=== PATIENT | female | born 1995 ===

== ENCOUNTER 2020-05-27 09:26 | Outpatient (CLI) | payer MEDICAID ==
[~2020-05-27] VITALS: Ht 162.6 cm; Wt 90.4 kg
[2020-05-27] MEDS ORDERED: PREN1TAB10 PO (10:07)
[2020-05-27 10:08] VITALS: BP 111/62
== END 2020-05-27 10:33 | disposition home or self-care (01) ==
LOC: LDOP 09:26
PROVIDERS: ATTEND Obstetrics & Gynecology
DX: Z34.93 Encounter for supervision of normal pregnancy, unspecified, third trimester (principal); Z3A.34 34 weeks gestation of pregnancy
CPT/HCPCS: 59025

== ENCOUNTER 2020-06-19 15:46 | Outpatient (CLI) | payer MEDICAID ==
[~2020-06-19] VITALS: Ht 162.6 cm; Wt 93.1 kg
[~2020-06-19 15:46] MED LIST: PREN1TAB10 PO
[2020-06-19 15:53] VITALS: BP 118/71
== END 2020-06-19 17:50 | disposition home or self-care (01) ==
LOC: LDOP 15:46
PROVIDERS: ATTEND Obstetrics & Gynecology
DX: Z34.93 Encounter for supervision of normal pregnancy, unspecified, third trimester (principal); Z3A.37 37 weeks gestation of pregnancy
CPT/HCPCS: 59025; 76819

== ENCOUNTER 2020-07-04 11:37 | Outpatient (CLI) | payer MEDICAID ==
[~2020-07-04] VITALS: Ht 162.6 cm; Wt 93.1 kg
== END 2020-07-04 13:20 | disposition home or self-care (01) ==
LOC: LDOP 11:37
PROVIDERS: ATTEND Obstetrics & Gynecology
DX: O26.893 Other specified pregnancy related conditions, third trimester (principal); R10.9 Unspecified abdominal pain; Z3A.39 39 weeks gestation of pregnancy
CPT/HCPCS: 59025

== ENCOUNTER 2020-07-05 11:28 | Inpatient (IN) | payer MEDICAID ==
[~2020-07-05] VITALS: Ht 162.6 cm; Wt 93.2 kg
[2020-07-07] MEDS ORDERED: TERBUTALINE 1 MG/ML, 1ML IVPush PRN (05:30)
[2020-07-07] MEDS ORDERED: OXYTOCIN 30U/ 0.9% NaCL 500ML 500 ML IV PRN (05:30)
[2020-07-07] MEDS ORDERED: D5%-LACTATED RINGERS 1,000 ML IV SCH (05:30)
[2020-07-07] MEDS ORDERED: FENTANYL PF 100 MCG/2ML IV PRN (05:30)
[2020-07-07] MEDS ORDERED: TERBUTALINE 1 MG/ML, 1ML SQ PRN (05:30)
[2020-07-07] MEDS ORDERED: METOCLOPRAMIDE 5 MG/ML, 2ML IVPush PRN (05:30)
[2020-07-07] MEDS ORDERED: ONDANSETRON 2MG/ML, 2ML IVPush PRN ×3 (05:30→23:45)
[2020-07-07] MEDS ORDERED: SODIUM CITRATE/CITRIC ACID 30 ML UDC PO PRN (05:30)
[2020-07-07] MEDS ORDERED: OXYTOCIN 30U/ 0.9% NaCL 500ML 500 ML IV ONE (05:30)
[2020-07-07] MEDS ORDERED: LACTATED RINGERS 1,000 ML IV SCH ×2 (05:30→17:30)
[2020-07-07 06:09] LABS: BASOPHILS % (AUTO) 0 % (0-1); EOSINOPHILS % (AUTO) 1 % (1-7); LYMPHOCYTES % (AUTO) 23 % (22-44); MEAN CORPUSCULAR HEMOGLOBIN 29.2 pg (27.0-34.8); MEAN CORPUSCULAR HGB CONC 33.8 g/dL (32.4-35.8); MEAN PLATELET VOLUME 9.6 fL (7.4-10.4); MONOCYTES % (AUTO) 7 % (2-9); NEUTROPHILS % (AUTO) 70 % (42-75); PLATELET COUNT 211 x10^3/uL (130-400); RED CELL DISTRIBUTION WIDTH 14.5 % (9.6-15.2)
[2020-07-07 06:17] LABS: MD NO
[2020-07-07] MEDS ORDERED: PLEASE ENTER HEIGHT AND WEIGHT MC SCH (06:30)
[2020-07-07] MEDS ORDERED: MISOPROSTOL 200 MCG TABLET ONE ×2 (07:14→19:00)
[2020-07-07] MEDS ORDERED: NEWBORN KIT ONE (07:14)
[2020-07-07] MEDS ORDERED: LIDOCAINE 1%, 20ML ONE (07:14)
[2020-07-07] MEDS: FENTANYL PF 100 MCG/2ML IVPush PRN ×3 (13:24→16:10)
[2020-07-07] MEDS ORDERED: FENTANYL/BUPIV./NS/PF 250 ML EPIDCONT ONE (16:38)
[2020-07-07] MEDS ORDERED: BUPIVACAINE 0.25% ONE (16:38)
[2020-07-07] MEDS ORDERED: EPHEDRINE 50 MG/ML, 1ML IVPush PRN ×2 (17:30→23:45)
[2020-07-07] MEDS ORDERED: DIPHENHYDRAMINE 50 MG/ML, 1ML IVPush PRN (17:30)
[2020-07-07] MEDS ORDERED: LACTATED RINGERS 1,000 ML IVBOLUS PRN (17:30)
[2020-07-07] MEDS ORDERED: FENTANYL/BUPIV./NS/PF 250 ML EPIDCONT SCH (17:30)
[2020-07-07] MEDS ORDERED: NALOXONE 0.4 MG/ML, 1ML IVPush PRN (17:30)
[2020-07-07] MEDS ORDERED: LIDOCAINE/MPF 2%-EPI 1:200K, 20 ML ONE (18:40)
[2020-07-07] MEDS ORDERED: THROMBIN (RECOMBINANT) 5,000 UNIT VIAL TP ONE (19:00)
[2020-07-07] MEDS ORDERED: SODIUM CITRATE/CITRIC ACID 15 ML UDC ONE (19:01)
[2020-07-07] MEDS ORDERED: ACETAMINOPHEN 325 MG TABLET PO PRN (19:30)
[2020-07-07] MEDS ORDERED: CARBOPROST TROMETHAMINE 250 MCG/ML, 1ML IM PRN (19:30)
[2020-07-07] MEDS ORDERED: ONDANSETRON 2MG/ML, 2ML IV PRN (19:30)
[2020-07-07] MEDS ORDERED: morphine SULFATE 10 MG/ML, 1ML IVPush PRN (19:30)
[2020-07-07] MEDS ORDERED: MISOPROSTOL 200 MCG TABLET PR PRN (19:30)
[2020-07-07] MEDS ORDERED: MORPHINE SULFATE 4 MG/ML, 1ML IVPush PRN ×2 (19:30→23:45)
[2020-07-07] MEDS ORDERED: METHYLERGONOVINE 0.2 MG/ML IM PRN (19:30)
[2020-07-07] MEDS ORDERED: OXYTOCIN 10 UNITS/ML, 1ML ONE (19:31)
[2020-07-07] MEDS ORDERED: SODIUM CHLORIDE 0.9% PF 10ML ONE (19:31)
[2020-07-07] MEDS ORDERED: CEFAZOLIN 1,000 MG ONE (19:31)
[2020-07-07] MEDS ORDERED: morphine SULFATE/PF 0.5 MG/ML, 10ML ONE (19:31)
[2020-07-07] MEDS ORDERED: ONDANSETRON 2MG/ML, 2ML ONE (19:31)
[2020-07-07] MEDS ORDERED: KETOROLAC 30 MG/1 ML ONE (19:31)
[2020-07-07] MEDS ORDERED: DEXAMETHASONE 4 MG/ML, 1ML ONE (19:31)
[2020-07-07] MEDS ORDERED: MIDAZOLAM 1 MG/ML, 2ML ONE (19:51)
[2020-07-07] MEDS ORDERED: FENTANYL PF 100 MCG/2ML ONE (19:51)
[2020-07-07] MEDS ORDERED: HYDROmorphone 2 MG/ML, 1ML ONE (20:46)
[2020-07-07] MEDS ORDERED: CEFAZOLIN PMX 1GM/50ML 50 ML IV SCH (21:00)
[2020-07-07 23:43] VITALS: BP 110/69
[2020-07-07] MEDS ORDERED: NO SEDATIVES, TRANQUILIZERS OR ANTIEMETICS XX SCH (23:45)
[2020-07-07] MEDS ORDERED: DIPHENHYDRAMINE 50 MG/ML, 1ML IV PRN (23:45)
[2020-07-07] MEDS ORDERED: NALOXONE 0.4 MG/ML, 1ML IV PRN (23:45)
[2020-07-07] MEDS ORDERED: OXYcodone/APAP 5/325MG TABLET PO PRN (23:45)
[2020-07-08] MEDS: KETOROLAC 30 MG/1 ML IVPush SCH ×4 (02:28→20:30)
[2020-07-08 04:14] VITALS: BP 105/58
[2020-07-08 05:20] LABS: BASOPHILS % (AUTO) 0 % (0-1); EOSINOPHILS % (AUTO) 0 % (1-7); LYMPHOCYTES % (AUTO) 12 % (22-44); MEAN CORPUSCULAR HGB CONC 33.6 g/dL (32.4-35.8); MEAN PLATELET VOLUME 9.3 fL (7.4-10.4); MONOCYTES % (AUTO) 7 % (2-9); NEUTROPHILS % (AUTO) 81 % (42-75); PLATELET COUNT 199 x10^3/uL (130-400); RED BLOOD COUNT 3.52 x10^6/uL (3.82-5.3); RED CELL DISTRIBUTION WIDTH 14.2 % (9.6-15.2)
[2020-07-08 06:37] LABS: MD SCAN
[2020-07-08 07:25] VITALS: BP 113/70
[2020-07-08] MEDS: DOCUSATE 100 MG CAPSULE PO PRN ×2 (07:48→20:23)
[2020-07-08] MEDS: PRENATAL VIT/IRON/FA 1 EACH TABLET PO SCH (07:48)
[2020-07-08] MEDS: SIMETHICONE 80 MG CHEW TAB PO PRN (07:48)
[2020-07-08] MEDS: OXYcodone/APAP 5/325MG TABLET PO PRN ×4 (07:48→20:22)
[2020-07-08] MEDS: OXYTOCIN 30U/ 0.9% NaCL 500ML 500 ML IV SCH ×3 (08:52→16:12)
[2020-07-08] MEDS: LACTATED RINGERS 1,000 ML IV SCH ×5 (08:52→19:30)
[2020-07-08] MEDS: FERROUS GLUCONATE 324 MG TABLET PO SCH ×2 (11:59→17:47)
[2020-07-08 13:58] VITALS: BP 96/62
[2020-07-08] MEDS: IBUPROFEN 600 MG TABLET PO PRN ×2 (16:04→22:02)
[2020-07-08 16:31] VITALS: BP 103/66
[2020-07-08 20:15] VITALS: BP 102/65
[2020-07-09 00:25] VITALS: BP 109/67
[2020-07-09] MEDS: OXYcodone/APAP 5/325MG TABLET PO PRN ×4 (00:27→12:52)
[2020-07-09] MEDS: OXYTOCIN 30U/ 0.9% NaCL 500ML 500 ML IV SCH (01:30)
[2020-07-09] MEDS: LACTATED RINGERS 1,000 ML IV SCH ×2 (01:30→03:30)
[2020-07-09] MEDS: IBUPROFEN 600 MG TABLET PO PRN ×2 (04:34→11:11)
[2020-07-09] MEDS: SIMETHICONE 80 MG CHEW TAB PO PRN (08:40)
[2020-07-09] MEDS: PRENATAL VIT/IRON/FA 1 EACH TABLET PO SCH (08:40)
[2020-07-09] MEDS: DOCUSATE 100 MG CAPSULE PO PRN (08:41)
[2020-07-09] MEDS: FERROUS GLUCONATE 324 MG TABLET PO SCH ×2 (08:42→12:50)
[2020-07-09 08:43] VITALS: BP 129/86
[2020-07-09] MEDS ORDERED: IBUP-1222 PO (12:34)
[2020-07-09] MEDS ORDERED: SENN-92 PO (12:34)
[2020-07-09] MEDS ORDERED: OXYC1TAB14 PO (12:34)
[2020-07-09] MEDS ORDERED: FERR324T18 PO (12:35)
[2020-07-09] MEDS ORDERED: SIME80TA15 PO (12:35)
== END 2020-07-09 13:20 | disposition home or self-care (01) | DRG 786 ==
LOC: LDIP 07-07 05:17 → 2NW 07-07 22:40
PROVIDERS: ADMIT Obstetrics & Gynecology; ATTEND Obstetrics & Gynecology
PROC: 10D00Z1 Extraction of Products of Conception, Low, Open Approach (ICD-10-PCS; principal; 2020-07-07)
DX: O34.211 Maternal care for low transverse scar from previous cesarean delivery (principal); O45.93 Premature separation of placenta, unspecified, third trimester; N93.9 Abnormal uterine and vaginal bleeding, unspecified; O62.1 Secondary uterine inertia; O77.0 Labor and delivery complicated by meconium in amniotic fluid; Z37.0 Single live birth; Z3A.40 40 weeks gestation of pregnancy; Z20.822 Contact with and (suspected) exposure to COVID-19
CPT/HCPCS: 36415; J7121; 85025; 86592; 86850; 86900; 87635; 88307; G0378; J0690; J1100; J1885; J2250; J2274; J2405; J3010; J1200; J2590; J2765; J7120